=== PATIENT | female | born 1985 | race Caucasian/White ===

== ENCOUNTER 2017-03-21 13:07 | Day surgery (SDC) | payer OTHER ==
[~2017-03-21] VITALS: Ht 170.2 cm; Wt 60.7 kg
[2017-03-21 14:04] VITALS: BP 113/91; PULSE 100; TEMP 98.7
[2017-03-21] MEDS ORDERED: ZYRTEC 10MG10 MG PO (14:13)
[2017-03-21] MEDS ORDERED: LOW-OGESTREL 281 TAB PO (14:14)
[2017-03-21] MEDS ORDERED: NEURONTIN100 MG/CAP PO (14:15)
[2017-03-21] MEDS ORDERED: NEXIUM 20MG20 MG PO (14:17)
[2017-03-21] MEDS ORDERED: BENTYL 20MG20 MG/TAB PO (14:17)
[2017-03-21] MEDS ORDERED: MOBIC15 MG PO (14:18)
[2017-03-21] MEDS ORDERED: COMPAZINE 5MG TA5 MG PO (14:19)
[2017-03-21] MEDS ORDERED: IMITREX ST6 MG/0.5 M SC (14:20)
[2017-03-21] MEDS ORDERED: ALDACTONE 25MG25 M1 PO (14:21)
[2017-03-21] MEDS ORDERED: LIORESAL20 MG PO (14:21)
[2017-03-21] MEDS ORDERED: WELLBUTRIN XL150 MG PO (14:22)
[2017-03-21] MEDS ORDERED: HEMORRHOIDAL HYGI50% TP (14:23)
[2017-03-21] MEDS ORDERED: RETIN-A 0.01% GEL15 TP (14:24)
[2017-03-21] MEDS ORDERED: OMEGA-3 1000 MG1 CAP PO (14:25)
[2017-03-21] MEDS ORDERED: PERIACTIN 4MG TA4 MG PO (14:25)
[2017-03-21] MEDS ORDERED: MIRALAX119G PO (14:27)
[2017-03-21] MEDS ORDERED: PSYLLIUM HUSK1 POW (14:27)
[2017-03-21] MEDS ORDERED: ENSURE 237 ML237 ML PO (14:28)
[2017-03-21] MEDS ORDERED: RESTORIL 77.5 MG/CAP PEG (14:28)
[2017-03-21] MEDS ORDERED: VISTARIL50 MG PO (14:30)
[2017-03-21] MEDS ORDERED: BIOFREEZE 0.2%-1 GE1 TOP (14:31)
[2017-03-21] MEDS ORDERED: VOLTAREN GEL 1%1 TU TP (14:31)
[2017-03-21] MEDS ORDERED: PROCTOFOAM-HC F10 G1 RC (14:32)
[2017-03-21] MEDS ORDERED: CELEXA 20MG20 MG/TAB PO (14:34)
[2017-03-21] MEDS ORDERED: ANUSOL HC CREAM30 GM TP (14:35)
[2017-03-21 14:55] VITALS: BP 128/84; PULSE 96; TEMP 97.7
[2017-03-21 15:10] VITALS: BP 125/83; PULSE 86
[2017-03-21 15:25] VITALS: BP 124/90; PULSE 92
[2017-03-21 15:40] VITALS: BP 117/78; PULSE 86
[2017-03-21] MEDS ORDERED: LINZESS145CAP PO (16:19)
== END 2017-03-21 16:13 | disposition home or self-care (01) ==
LOC: SDCO 13:07
DX: K59.00 Constipation, unspecified (principal); R19.5 Other fecal abnormalities; K58.9 Irritable bowel syndrome, unspecified; K64.1 Second degree hemorrhoids; Z79.899 Other long term (current) drug therapy
CPT/HCPCS: J2250; J3010; J7030